=== PATIENT | male | born 1980 | race Hispanic/Latino ===

== ENCOUNTER 2017-01-31 10:55 | Emergency (ER) | payer OTHER ==
[2017-01-31 11:17] VITALS: BMI 37.5
[2017-01-31 11:19] VITALS: BP 145/86; PULSE 88; RESP 20; TEMP 98.4; O2SAT 99
--- NOTE | 2017-01-31 11:40 | ED PDOC ---
Arrival/HPI - General Chief Complaint: Abnormal Skin Integrity Time Seen by Provider: 01/31/17 11:13 Historian: Patient - History of Present Illness Narrative History of Present Illness (Text): 01/31/17 11:25 A 36 year old male, whose past medical history includes hypertension, presents to the emergency department because he has had a resolving small lesion that he thought was an insect bite developing 10 days ago in the right forearm. He is here because today he noted a small area of brusing in AC fossa and was concerned that it was related. But he has no pain in the area. Patient reports neck stiffness that developed last night on left side radiating to right side this morning; he says he gets neck pain and stiffness sometimes but this feels different. Patient denies any pain, fevers, chills, sore throat, cough, runny nose, nausea, vomiting or any other complaints at this time. 01/31/17 12:05 Time/Duration: > week Symptom Onset: Sudden Symptom Course: Unchanged Activities at Onset: Rest Modifying Factors (Text): none Context: Home Associated Symptoms (Text): neck stiffness Past Medical History - Provider Review Nursing Documentation Reviewed: Yes - Infectious Disease Hx of Infectious Diseases: None - Cardiac Hx Hypertension: Yes - Psychiatric Hx Substance Use: No Family/Social History - Physician Review Nursing Documentation Reviewed: Yes Family/Social History: No Known Family HX Smoking Status: Unknown If Ever Smoked Hx Alcohol Use: Yes Frequency of alcohol use: Socially Hx Substance Use: No Allergies/Home Meds Allergies/Adverse Reactions: Allergies No Known Allergies Allergy (Verified 01/31/17 11:20) Home Medications: Home Meds Medication Instructions Recorded Confirmed Amlodipine Bes/Olmesartan Med 1 each PO DAILY 01/31/17 01/31/17 [Eun 10-20 mg Tablet] Review of Systems - Physician Review All systems were reviewed & negative as marked: Yes - Review of Systems Constitutional: absent: Fevers, Other (chills) ENT: absent: Sore Throat Respiratory: absent: SOB, Cough Cardiovascular: absent: Chest Pain Gastrointestinal: absent: Abdominal Pain, Nausea, Vomiting Musculoskeletal: Other (neck stiffness) Skin: Other (induration and ecchymosis) Neurological: absent: Headache, Dizziness Physical Exam Vital Signs Reviewed: Yes Vital Signs Temp Pulse Resp BP Pulse Ox 01/31/17 11:16 98.4 F 88 20 145/86 99 Temperature: Afebrile Blood Pressure: Normal Pulse: Regular Respiratory Rate: Normal Appearance: Positive for: Well-Appearing, Non-Toxic, Comfortable Pain Distress: None Mental Status: Positive for: Alert and Oriented X 3 - Systems Exam Head: Present: Atraumatic, Normocephalic Pupils: Present: PERRL Conjunctiva: Present: Normal Mouth: Present: Moist Mucous Membranes Pharnyx: Present: Normal. No: ERYTHEMA, EXUDATE Neck: Present: Normal Range of Motion Respiratory/Chest: Present: Clear to Auscultation, Good Air Exchange. No: Respiratory Distress, Accessory Muscle Use Cardiovascular: Present: Regular Rate and Rhythm, Normal S1, S2. No: Murmurs Abdomen: Present: Normal Bowel Sounds. No: Tenderness, Distention, Peritoneal Signs Upper Extremity: Present: Other (see lesion). No: Cyanosis, Edema Lower Extremity: Present: Normal Inspection. No: Edema Neurological: Present: GCS=15, CN II-XII Intact, Speech Normal Skin: Present: Induration (1 cm area of minimal scabbing induration on the dorsum of R forearm; no warmth, erythema, or tenderness), Other (r anticubital fossa small ecchymosis; no lymphadenopathy present) Psychiatric: Present: Alert, Oriented x 3, Normal Insight, Normal Concentration Medical Decision Making ED Course and Treatment: 01/31/17 11:49 Impression: 36 year old male with small area 1 cm minimal induration of dorsum right forearm and right anticubital fossa small ecchymosis. Differential Diagnosis included but are not limited to: Resolving folliculitis vs less likely early cellulitis. Plan: -- Labs -- Reassess and disposition Progress Notes: Patient with noted history and physical. No lymphangitic streaking is noted and no lymphadenopathy is palpable. Normal WBC count is present. Patient informed of mild LFT elevation, which he says he has had in the past and has been advised to f/u pcp. Will dc on bactroban and give scripts for oral antibiotics but told to hold and use only if streaking develops or he gets any other concerning symptoms such as fever or chills or arm pain. - Lab Interpretations Lab Results: 01/31/17 11:30 01/31/17 11:30 Lab Results 01/31/17 11:30: Sodium 139, Potassium 3.8, Chloride 105, Carbon Dioxide 21, Anion Gap 17, BUN 8, Creatinine 0.8, Est GFR ( Amer) > 60, Est GFR (Non- Af Amer) > 60, Random Glucose 102, Calcium 9.3, Total Bilirubin 1.5 H, AST 101 H , ALT 124 H, Alkaline Phosphatase 62, Total Protein 8.3, Albumin 4.4, Globulin 3.9, Albumin/Globulin Ratio 1.1 01/31/17 11:30: WBC 6.5, RBC 5.45, Hgb 17.2, Hct 48.8, MCV 89.5, MCH 31.6, MCHC 35.2, RDW 14.0, Plt Count 213, MPV 10.1, Gran % 55.7, Lymph % (Auto) 26.8, Cannon % (Auto) 11.3 H, Eos % (Auto) 5.3 H, Baso % (Auto) 0.9, Gran # 3.60, Lymph # 1.7 , Cannon # 0.7 H, Eos # 0.3, Baso # 0.06 I have reviewed the lab results: Yes - Scribe Statement The provider has reviewed the documentation as recorded by the Scribe Sobeida Alcala All medical record entries made by the Scribe were at my direction and personally dictated by me. I have reviewed the chart and agree that the record accurately reflects my personal performance of the history, physical exam, medical decision making, and the department course for this patient. I have also personally directed, reviewed, and agree with the discharge instructions and disposition. Disposition/Present on Arrival - Present on Arrival Any Indicators Present on Arrival: No History of DVT/PE: No History of Uncontrolled Diabetes: No Urinary Catheter: No History of Decub. Ulcer: No History Surgical Site Infection Following: None - Disposition Have Diagnosis and Disposition been Completed?: Yes Diagnosis: Folliculitis Disposition: HOME/ ROUTINE Disposition Time: 12:15 Patient Plan: Discharge Condition: GOOD Discharge Instructions (ExitCare): Folliculitis (ED) Additional Instructions: Apply bactroban as prescribed. Follow up with your primary care doctor and have your LFTs repeated outpatient and obtain additional workup if needed. Prescriptions for Bactrim DS and Cephalexin have given to you, but do not use unless you develop right arm pain, streaking, and/or fever/chills in association with the arm lesion. Return to the emergency department if any new concerning symptoms. Prescriptions: Cephalexin [Keflex] 500 mg PO TID #30 cap Mupirocin 2% Cream [Bactroban Cream] 1 cre TOP BID #30 gm Sulfamethoxazole/Trimethoprim [Bactrim DS 800 mg-160 mg] 1 tab PO BID #20 tab
[2017-01-31 11:45] LABS: ADD MANUAL DIFF? NO
[2017-01-31 11:56] LABS: BASO # 0.06 K/mm3 (0.0-2.0); BASO % 0.9 % (0.0-3.0); EOS # 0.3 (0.0-0.7); EOS % 5.3 % (1.5-5.0); GRAN % 55.7 % (50.0-68.0); HEMATOCRIT 48.8 % (42.0-52.0); LYMPH # 1.7 (1.2-3.4); LYMPH % 26.8 % (22.0-35.0); MEAN CELL VOLUME 89.5 fL (80.0-105.0); MEAN CORPUSCULAR HEMOGLOBIN 31.6 pg (25.0-35.0); MEAN CORPUSCULAR HGB CONC 35.2 g/dl (31.0-37.0); MEAN PLATELET VOLUME 10.1 fl (7.0-11.0); MONO # 0.7 (0.1-0.6); MONO % 11.3 % (1.0-6.0); PLATELET COUNT 213 10^3/uL (120.0-450.0); WHITE BLOOD COUNT 6.5 10^3/ul (4.5-11.0)
[2017-01-31 11:57] LABS: ALB/GLOB RATIO 1.1 (1.1-1.8); ALKALINE PHOSPHATASE 62 U/L (38-133); ALT/SGPT 124 U/L (7-56); AST/SGOT 101 U/L (15-59); BILIRUBIN,TOTAL 1.5 mg/dL (0.2-1.3); BLOOD UREA NITROGEN 8 mg/dL (7-21); CALCIUM 9.3 mg/dL (8.4-10.5); CARBON DIOXIDE 21 mmol/L (21-33); CHLORIDE 105 mmol/L (95-110); GFR AFRICAN-AMERICAN > 60; GLUCOSE,RANDOM 102 mg/dL (70-110); POTASSIUM 3.8 mmol/L (3.6-5.0); SODIUM 139 mmol/L (132-148); TOTAL PROTEIN 8.3 g/dL (5.8-8.3)
== END 2017-01-31 12:20 | disposition home or self-care (01) ==
LOC: ED 10:55
DX: L73.9 Follicular disorder, unspecified (principal)